=== PATIENT | male | born 1955 | race Caucasian/White ===

== ENCOUNTER 2024-01-30 12:43 | Outpatient (CLI) | payer MEDICARE, OTHER, SELFPAY ==
[2024-01-30 13:13] LABS: Anion Gap 6 mmol/L (4-12); Blood Urea Nitrogen 12 mg/dL (9-20); Carbon Dioxide 30 mmol/L (22-30); Chloride 95 mmol/L (98-107); Estimated Glomerular Filt Rate > 60; Glucose 97 mg/dL (65-110); Potassium 3.7 mmol/L (3.4-5.0); Sodium 131 mmol/L (137-145)
== END 2024-01-30 12:44 | disposition home or self-care (01) ==
LOC: ANHSURGERY 12:47
PROVIDERS: Anesthesiology; PCP Internal Medicine; Visit Provider Surgery
DX: Z01.812 Encounter for preprocedural laboratory examination (principal); I10 Essential (primary) hypertension
CPT/HCPCS: 36415; 80048

== ENCOUNTER 2024-02-01 00:34 | Day surgery (SDC) | payer MEDICARE, OTHER, SELFPAY ==
[2024-01-25 12:59] VITALS: BMI 32.0
--- NOTE | 2024-01-25 13:21 | PC.NURSE ---
Report to the Outpatient Waiting Room, entrance under the green pavilion located off [facility], at time _07:30am on date _02/01/24 . Planned Procedure Time: ____09:30am____.? Time changes happen often and if your time is changed the preop area will call you the afternoon before. - You and your visitor will be asked to self-screen and do not enter if you have any COVID symptoms. Please call surgeon if you need to reschedule. - A mask is optional within the hospital at this time. Patients may have clear liquids (water, carbonated beverages, clear teas, apple juice) until 3 hours prior to surgery with a maximum of 20 ounces. - No food from midnight until time of surgery and no smoking (0630am latest to have drink) Take only the following medications with a SIP of water on the morning of surgery: ____Nebivolol, Duloxetine, Gabapentin, and Isosorbide DO NOT STOP ANY OF YOUR OTHER PRESCRIPTION MEDICATIONS PRIOR TO SURGERY EXCEPT THE FOLLOWING Medications to discontinue per physician Hold Plavix ( clopidogrel) 7 days prior to surgery per Dr Castillo Date to take last dose____01/24/24 Hold all vitamins and supplements for 3 days prior to surgery. Date to take last dose is 01/28/24 . Please no make-up, nail [place] islander, hairspray, perfume, deodorant, or body powder the day of surgery.? No jewelry (including any body piercings) or valuables the day of surgery, leave them at home.? Please take a shower or bath the night before, or the morning of, surgery with an antibacterial soap.? Wear comfortable, loose fitting clothing.? Children are encouraged to wear pajamas. - Jewelry must be removed prior to entering the operating room.? Rings and piercings that are not removed may be cut off. - The hospital will not accept responsibility for valuables.? - Please leave all valuables, including medications, at home the day of surgery. If you are going home after surgery, a licensed route driver [employer] must drive you home.? - NO public transportation without another adult if you receive anesthesia. - We recommend that an adult stay with you for 24 hours following discharge. - We also recommend that you do not drive, make important decision, drink alcoholic beverages, or take any drugs that were not prescribed by your health care provider for at least 24 hours after your discharge time. Follow any additional instructions given to you from your surgeon. Telephone instructions given to __sister Esther Mendes and asked if any additional questions and then verbalized understanding. Patient advised to call surgeon office or pre surgery nurse liaison [phone] if any additional questions.
[2024-02-01 08:14] LABS: Sodium 132 mmol/L (137-145)
[2024-02-01 08:26] LABS: Glucose Point of Care 103 mg/dl (65-105)
[2024-02-01 08:30] VITALS: BP 131/71; PULSE 67; RESP 14; TEMP 36.7; O2SAT 97
[2024-02-01] MEDS: LACTATED RINGERS 1,000 ML 30 ML IV CONT (08:30)
--- NOTE | 2024-02-01 08:34 | WPDANESEPPF ---
Anes - Initial Pre Proc Eval Procedure: Operation Date: 02/01/24 09:30 Proposed Procedures p Excision of Left Anterior Chest Wall Inclusion Cyst - Santana Castillo MD Date/Time: 02/01/24 08:34 Surgeon: Santana Castillo MD Pre Op Diagnosis: left chest wall cyst Patient Data Age: 68 Gender: M Height: 1.65 m Weight: 87.3 kg Allergies Allergy/AdvReac Type Severity Reaction Status Date / Time bee venom protein (honey bee) Allergy Severe Anaphylactic Verified 01/25/24 12:54 Shock Sulfa (Sulfonamide Allergy Intermediate Hives Verified 01/25/24 12:53 Antibiotics) codeine AdvReac Intermediate Hives Verified 01/25/24 12:53 naproxen AdvReac Intermediate delerium Verified 01/25/24 12:53 rivastigmine AdvReac Intermediate Rash Verified 01/25/24 12:53 varenicline [From Chantix] AdvReac Intermediate Agitated Verified 01/25/24 12:53 cannabinoids AdvReac Intermediate Rash Uncoded 01/25/24 12:53 Home Medications Medication Instructions Recorded Confirmed Type aspirin 81 mg capsule 81 mg PO DAILY 01/09/24 01/25/24 History cholecalciferol (vitamin D3) 50 50 mcg PO DAILY 01/09/24 01/25/24 History mcg (2,000 unit) capsule clonidine HCl 0.1 mg tablet 0.1 mg PO DAILY 01/09/24 01/25/24 History clopidogrel 75 mg tablet 75 mg PO DAILY 01/09/24 01/25/24 History duloxetine 60 mg capsule,delayed 120 mg PO DAILY 01/09/24 01/25/24 History release enalapril maleate 20 mg tablet 20 mg PO DAILY 01/09/24 01/25/24 History epinephrine 0.1 mg/0.1 mL 0.1 mg IM PRN PRN bee 01/09/24 01/25/24 History injection, auto-injector gabapentin 400 mg capsule 400 mg PO TID 01/09/24 01/25/24 History isosorbide mononitrate 60 mg 60 mg PO DAILY 01/09/24 01/25/24 History tablet,extended release 24 hr nebivolol 5 mg tablet 5 mg PO DAILY 01/09/24 01/25/24 History nitroglycerin 0.4 mg sublingual 0.4 mg sublingual Q5M PRN Chest 01/09/24 01/25/24 History tablet Pain rosuvastatin 10 mg tablet 10 mg PO DAILY 01/09/24 01/25/24 History triamterene 37.5 1 tablet PO QAM 01/09/24 01/25/24 History mg-hydrochlorothiazide 25 mg tablet Laboratory Tests 02/01/24 02/01/24 08:01 08:23 Sodium 132 L mmol/L (137-145) POC Capillary Glucose 103 mg/dl (65-105) Patient hx anesthesia problems: none Family hx anesthesia problems: none Results Review: All pre-operative results and documents have been reviewed as part of the pre-operative evaluation. [facility] Past Medical History Medical History Allergies Anxiety Arthritis Diabetes Heart disease History of CVA (cerebrovascular accident) History of heart attack Hypertension Surgical History Surgical History H/O hand surgery History of carpal tunnel release History of cervical spinal surgery History of loop recorder History of tonsillectomy Family History Family History Other Cerebrovascular accident Depression Diabetes mellitus Hypertension Lung cancer Social History Social History Smoking packs per day: 1.5 Smoking cigarettes per day: 30.0 Years smoked: 52 Smoking pack-years: 78.00 Smoking status: Current every day smoker Tobacco type: cigarettes Alcohol intake: never Substance use: never Do You Feel Safe in your Home?: Yes Lack of Transportation: No Lack of Food: Never True Current Housing: I Have Housing Concerned About Future Housing: No Difficulty Paying Gas/Electric Bills: No Difficulty Paying for Meds: No Currently Unemployed: No Education: Trade/Vocational Certificate Difficulty w/ Childcare or Family Care: No Living arrangements: alone Additional living arrangements comments: Spiritual care concerns: No Anes - Eval Final PreProcedure Day of Procedure 02/01/24 08:34 P
--- NOTE | 2024-02-01 09:17 | WPDHPUPDATE1 ---
History and Physical Update Update Date/Time: 02/01/24 09:17 History and Physical has been reviewed, including an updated exam of the patient. There are NO changes in the patient's condition. Risks, benefits, and alternatives have been discussed and questions answered. Patient agrees to proceed with procedure.
[2024-02-01] MEDS: ceFAZolin 2 GM/D5W 50 ML 2 GM/50 ML BAG IVPB (09:24)
[2024-02-01] MEDS: LIDO 1%/EPINEPHRINE 1:100,000 20 ML VIAL 30 ML INFILTRATE (09:50)
[2024-02-01 10:15] VITALS: BP 103/60; PULSE 68; RESP 12; O2SAT 95
--- NOTE | 2024-02-01 10:15 | P.OP_ITS ---
Procedure Note - Detailed Date of Procedure 02/01/24 Pre-op Diagnosis Ruptured left anterior chest wall sebaceous cyst. Post-op Diagnosis Same Procedure Performed Excision left anterior chest wall ruptured sebaceous cyst with 5.5cm interm ediate layered wound closure Surgeon Santana Castillo MD [employer] [place], [place] Anesthesia MAC and Local Indications Patient is a 68-year-old gentleman presented with a draining anterior left chest wall is infected sebaceous cyst. It was incised and drained in the office. Infections now resolved he presents now for excision of the remaining cyst wall remnants. Findings The cyst measured approximately [id number]. After excision the wound was closed utilizing a 5.5cm intermediate layered wound closure. Description of Procedure After informed consent was obtained patient brought to the operating room was placed supine position and IV sedation was administered by anesthesia. The left anterior chest wall was then prepped and draped usual sterile fashion. A time- out was then performed correctly identifying the patient as well as procedure to be performed. He was given perioperative IV antibiotics. I then anesthetized the area around the cyst utilizing 1% lidocaine mixed with 0.5% Marcaine with some epinephrine. I then made a transverse elliptical incision to incorporate the whole wall of the cyst. The excision carried deeply down through this dermis skin with a scalpel electrocautery was used to completely excise out the ellipse of tissue completely containing the cyst wall. The cyst measured approximately [id number]. The mass was passed off and sent to pathology for examination. I then achieved hemostasis in the wound utilized electrocautery. The incision was then irrigated sterile saline solution and closed with an in termediate layered wound closure. 2-0 Vicryl sutures were placed in the deeper subcutaneous tissues. This is followed by layer interrupted 3-0 Vicryl sutures the deep dermal layer. The skin edges were approximated utilizing a running subcuticular 4-0 Monocryl suture. The incision was then cleaned the skin glue was applied. The patient tolerated the procedure well no complications. All sponges, needles, and instrument counts were correct at the end procedure. EBL was __5_cc. The patient was awakened and taken to recovery in stable and satisfactory condition. Implants None Estimated Blood Loss 5 Drains No Packing No Pathology Yes (Sebaceous cyst sent to pathology) Complications No immediate complications Condition Stable Disposition PACU [facility] Billing Surgery - Charge Forward: Surgery Billing
[2024-02-01 10:32] VITALS: BP 116/55; PULSE 71; RESP 16; O2SAT 95
[2024-02-01 10:46] LABS: Glucose Point of Care 107 mg/dl (65-105)
[2024-02-01 10:54] VITALS: BP 136/76; PULSE 75; RESP 16
--- NOTE | 2024-02-01 11:16 | SUR.PHASEII ---
MD Castillo contacted regarding when pt can resume blood thinners - pt can resume tonight or tomorrow based on regularly scheduled dose per MD. Pt education provided.
[2024-02-01 11:18] VITALS: BP 119/60; PULSE 82; RESP 16; O2SAT 95
== END 2024-02-01 11:21 | disposition home or self-care (01) ==
PROVIDERS: Anesthesiology; PCP Internal Medicine; Visit Provider Surgery
PROC: (CPT 11403; principal; 2024-02-01 09:30)
DX: L72.3 Sebaceous cyst (principal); E11.9 Type 2 diabetes mellitus without complications; I10 Essential (primary) hypertension
CPT/HCPCS: 11403; 12032; 36415; 82948; 84295; 88305; J0690; J2250; J2371; J2405; J2704; J3010; J7120